=== PATIENT | female | born 1970 | race Caucasian/White ===

== ENCOUNTER 2016-12-01 10:28 | Inpatient (IN) | payer BC, OTHER ==
[~2016-12-01] VITALS: Ht 154.9 cm; Wt 106.4 kg
[~2016-12-01 10:28] MED LIST: GLIP5TAB11 PO; LISI5TAB PO; METF10002 PO
[2016-12-01 10:56] LABS: GLUCOSE,POINT OF CARE 353 MG/DL (70-110)
[2016-12-01] MEDS ORDERED: ASPI81 PO (11:03)
[2016-12-01] MEDS ORDERED: INSLAN SQ (11:03)
[2016-12-01] MEDS ORDERED: LISI-662 PO (11:03)
[2016-12-01 12:15] LABS: BASOPHILS # (AUTO) 0.21 K/uL (0.00-0.20); BASOPHILS % (AUTO) 1.9 % (0.0-2.0); EOSINOPHILS # (AUTO) 0.19 K/uL (0.00-0.70); EOSINOPHILS % (AUTO) 1.77 % (1.0-6.0); HEMATOCRIT 40.9 % (36-46); HEMOGLOBIN 13.4 g/dL (12.0-16.0); LYMPHOCYTES # (AUTO) 3.7 K/uL (1.0-4.8); LYMPHOCYTES % (AUTO) 33.9 % (22.0-44.0); MEAN CORPUSCULAR HEMOGLOBIN 28.7 pg (26.0-34.0); MEAN CORPUSCULAR HGB CONC 32.7 G/dL (31.0-37.0); MEAN CORPUSCULAR VOLUME 88 fL (80-100); MONOCYTES # (AUTO) 0.4 K/uL (0.1-1.0); MONOCYTES % (AUTO) 3.7 % (2.0-9.0); NEUTROPHILS # (AUTO) 6.5 K/uL (1.8-7.7); NEUTROPHILS % (AUTO) 58.7 % (40.0-70.0); PLATELET COUNT (AUTO) 380 K/uL (150-450); RED BLOOD CELL COUNT(AUTO) 4.67 MIL/uL (4.00-5.20); RED CELL DISTRIBUTION WIDTH 14.3 % (11.5-14.5)
[2016-12-01] MEDS ORDERED: FAMOTIDINE 10 MG/ML 2 ML VIAL IVP ONE (12:15)
[2016-12-01] MEDS ORDERED: ONDANSETRON HCL 4 MG/2 ML VIAL IVP ONE (12:15)
[2016-12-01] MEDS ORDERED: HYDROmorphone 2 MG/ML SYRINGE IVP ONE (12:15)
[2016-12-01 12:28] LABS: ANION GAP 8 mmol/L (8-16); CALCIUM, TOTAL 9.6 mg/dL (8.8-10.5); CARBON DIOXIDE 29 mmol/L (22-29); CHLORIDE 98 mmol/L (98-107); CREATININE 0.95 mg/dL (0.60-1.30); GLOMERULAR FILTR. RATE CALC > 60 mL/min (>60); POTASSIUM 4.2 mmol/L (3.5-5.1); SODIUM SERUM 135 mmol/L (136-145); UREA NITROGEN, BLOOD 18 mg/dL (7-18)
[2016-12-01 12:33] LABS: GLUCOSE, URINE (UA) >=1000 mg/dL (NEGATIVE); KETONES,URINE NEGATIVE (NEGATIVE); LEUKOCYTE ESTERASE ,URINE NEGATIVE (NEGATIVE); OCCULT BLOOD,URINE NEGATIVE (NEGATIVE); PH,URINE 7.5 (5.0-8.0); PROTEIN,URINE NEGATIVE (NEGATIVE)
[2016-12-01 12:33] LABS: ALANINE AMINOTRANSFERASE 51 U/L (12-78); ALBUMIN 3.2 g/dL (3.4-5.0); ASPARTATE AMINOTRANSFERASE 27 U/L (15-37); BILIRUBIN,TOTAL 0.2 mg/dL (0.1-1.0); CREATINE KINASE, TOTAL 54 U/L (26-192); TOTAL PROTEIN, SERUM 7.9 g/dL (6.4-8.2)
[2016-12-01 12:34] LABS: PROTHROMBIN TIME 10.2 SEC (9.4-11.6)
[2016-12-01 12:40] LABS: ADD UA MICROSCOPIC YES; APPEARANCE,URINE HAZY (CLEAR)
[2016-12-01 12:40] LABS: B-TYPE NATRIURETIC PEPTIDE 18 pg/mL (0-100)
[2016-12-01 12:42] LABS: RBC,URINE 0-2 /HPF (0-2); WBC,URINE 0-2 /HPF (0-5)
[2016-12-01 12:43] LABS: SQUAMOUS EPITHELIAL CELL,UR Few /LPF (None Seen)
[2016-12-01] MEDS ORDERED: IOVERSOL 350 MG/ML 50 ML VIAL ONE (13:48)
[2016-12-01] MEDS ORDERED: IOVERSOL 350 MG/ML 100 ML VIAL ONE (13:48)
[2016-12-01] MEDS ORDERED: SODIUM CHLORIDE 0.9% 100 ML ONE (13:48)
[2016-12-01] MEDS ORDERED: BARIUM SULFATE 0.1% SUSPENSION 450 ML BOTTLE PO ONE (14:15)
[2016-12-01] MEDS ORDERED: BISACODYL 10 MG RECTAL RECTAL SUPPOSITORY PR PRN (18:00)
[2016-12-01] MEDS ORDERED: MAGNESIUM HYDROXIDE SUSPENSION 30 ML UDCUP PO PRN (18:00)
[2016-12-01] MEDS ORDERED: DEXTROSE 50%-WATER 25 GM/50 ML SYRINGE IVP PRN (18:00)
[2016-12-01] MEDS ORDERED: ACETAMINOPHEN 325 MG TABLET PO PRN (18:00)
[2016-12-01] MEDS ORDERED: ZOLPIDEM TARTRATE 5 MG TABLET PO PRN (18:00)
[2016-12-01 18:16] LABS: GLUCOSE,POINT OF CARE 233 MG/DL (70-110)
[2016-12-01] MEDS: MORPHINE SULFATE 2 MG/ML SYRINGE IVP PRN (19:27)
[2016-12-01] MEDS: INSULIN DETEMIR 100 UNITS/ML SQ SCH (19:59)
[2016-12-01] MEDS: INSULIN ASPART 100 UNITS/ML SQ PRN (20:00)
[2016-12-01 20:02] LABS: GLUCOSE COMMENT 1 Received Meds; GLUCOSE,POINT OF CARE 209 MG/DL (70-110)
[2016-12-01 20:13] VITALS: BP 141/76
[2016-12-01] MEDS: DOCUSATE SODIUM 100 MG CAPSULE PO SCH (21:00)
[2016-12-01] MEDS ORDERED: PNEUMOCOCCAL VACCINE POLYVALENT 0.5 ML VIAL [PPSV23] IM ONE (22:15)
[2016-12-01 23:56] VITALS: BP 110/66
[2016-12-02] MEDS: MORPHINE SULFATE 2 MG/ML SYRINGE IVP PRN (03:38)
[2016-12-02 04:41] VITALS: BP 125/72
[2016-12-02] MEDS: INSULIN ASPART 100 UNITS/ML SQ PRN ×4 (05:34→20:54)
[2016-12-02 06:12] LABS: GLUCOSE COMMENT 1 Received Meds; GLUCOSE,POINT OF CARE 250 MG/DL (70-110)
[2016-12-02 08:12] VITALS: BP 90/53
[2016-12-02] MEDS: ENOXAPARIN SODIUM 40 MG/0.4 ML PF SYRINGE SQ SCH (08:16)
[2016-12-02] MEDS: DOCUSATE SODIUM 100 MG CAPSULE PO SCH ×2 (08:16→20:53)
[2016-12-02] MEDS: PANTOPRAZOLE SODIUM 40 MG DR TABLET PO SCH (08:16)
[2016-12-02] MEDS: OxyCODONE HCL/ACETAMINOPHEN 5-325 MG TABLET PO PRN ×3 (08:37→20:53)
[2016-12-02 10:21] LABS: GLUCOSE COMMENT 1 Received Meds; GLUCOSE,POINT OF CARE 280 MG/DL (70-110)
[2016-12-02 15:45] VITALS: BP 122/67
[2016-12-02 17:16] LABS: GLUCOSE COMMENT 1 Received Meds; GLUCOSE,POINT OF CARE 232 MG/DL (70-110)
[2016-12-02 19:29] VITALS: BP 110/67
[2016-12-02] MEDS: INSULIN DETEMIR 100 UNITS/ML SQ SCH (20:54)
[2016-12-03 00:01] VITALS: BP 91/40
[2016-12-03 01:41] LABS: GLUCOSE,POINT OF CARE 232 MG/DL (70-110)
[2016-12-03 04:59] VITALS: BP 108/59
[2016-12-03] MEDS: MORPHINE SULFATE 2 MG/ML SYRINGE IVP PRN (06:24)
[2016-12-03] MEDS: INSULIN ASPART 100 UNITS/ML SQ PRN ×3 (06:25→20:48)
[2016-12-03 06:31] LABS: GLUCOSE,POINT OF CARE 256 MG/DL (70-110)
[2016-12-03 07:09] VITALS: BP 122/72
[2016-12-03] MEDS: DOCUSATE SODIUM 100 MG CAPSULE PO SCH ×2 (08:17→20:38)
[2016-12-03] MEDS: PANTOPRAZOLE SODIUM 40 MG DR TABLET PO SCH (08:17)
[2016-12-03] MEDS: ENOXAPARIN SODIUM 40 MG/0.4 ML PF SYRINGE SQ SCH (08:17)
[2016-12-03] MEDS: ONDANSETRON HCL 4 MG/2 ML VIAL IVP PRN ×2 (11:12→17:08)
[2016-12-03] MEDS: OxyCODONE HCL/ACETAMINOPHEN 5-325 MG TABLET PO PRN ×2 (11:13→17:12)
[2016-12-03 11:16] LABS: GLUCOSE COMMENT 1 Received Meds; GLUCOSE,POINT OF CARE 200 MG/DL (70-110)
[2016-12-03] MEDS ORDERED: SODIUM CHLORIDE 0.9% 100 ML ONE (11:19)
[2016-12-03] MEDS ORDERED: IOVERSOL 350 MG/ML 50 ML VIAL ONE (11:19)
[2016-12-03] MEDS ORDERED: IOVERSOL 350 MG/ML 100 ML VIAL ONE (11:19)
[2016-12-03 11:35] VITALS: BP 126/74
[2016-12-03 15:21] VITALS: BP 124/73
[2016-12-03] MEDS: MetFORMIN HCL 500 MG ER TABLET PO SCH (16:12)
[2016-12-03 17:25] LABS: GLUCOSE COMMENT 1 Received Meds; GLUCOSE,POINT OF CARE 293 MG/DL (70-110)
[2016-12-03 19:46] VITALS: BP 136/80
[2016-12-03] MEDS: INSULIN DETEMIR 100 UNITS/ML SQ SCH (20:47)
[2016-12-04 00:06] VITALS: BP 128/78
[2016-12-04 02:11] LABS: GLUCOSE COMMENT 1 Received Meds; GLUCOSE,POINT OF CARE 227 MG/DL (70-110)
[2016-12-04 03:25] VITALS: BP 120/69
[2016-12-04] MEDS: INSULIN ASPART 100 UNITS/ML SQ PRN (07:07)
[2016-12-04] MEDS: MetFORMIN HCL 500 MG ER TABLET PO SCH (08:00)
[2016-12-04 08:01] LABS: GLUCOSE COMMENT 1 Received Meds; GLUCOSE,POINT OF CARE 243 MG/DL (70-110)
[2016-12-04 08:02] VITALS: BP 146/87
[2016-12-04] MEDS: PANTOPRAZOLE SODIUM 40 MG DR TABLET PO SCH (08:53)
[2016-12-04] MEDS: DOCUSATE SODIUM 100 MG CAPSULE PO SCH (08:53)
[2016-12-04] MEDS: ENOXAPARIN SODIUM 40 MG/0.4 ML PF SYRINGE SQ SCH (08:54)
[2016-12-04] MEDS: ONDANSETRON HCL 4 MG/2 ML VIAL IVP PRN (08:56)
[2016-12-04] MEDS: MORPHINE SULFATE 2 MG/ML SYRINGE IVP PRN (11:08)
[2016-12-04] MEDS ORDERED: SODIUM CHLORIDE 0.9% 500 ML IV ONE (11:34)
[2016-12-04 11:35] LABS: GLUCOSE,POINT OF CARE 204 MG/DL (70-110)
[2016-12-04 12:15] VITALS: BP 140/67
[2016-12-04] MEDS ORDERED: DEXTROSE 5%-0.45% SODIUM CHL 1,000 ML IV ONE (12:30)
== END 2016-12-04 15:50 | disposition home or self-care (01) | DRG 442 ==
LOC: EMS 10:31 → 6N 17:47
PROVIDERS: ADMIT Internal Medicine; ATTEND Internal Medicine
PROC: 3E0234Z Introduction of Serum, Toxoid and Vaccine into Muscle, Percutaneous Approach (ICD-10-PCS; principal; 2016-12-01)
DX: K76.0 Fatty (change of) liver, not elsewhere classified (principal); E44.0 Moderate protein-calorie malnutrition; K74.60 Unspecified cirrhosis of liver; E66.01 Morbid (severe) obesity due to excess calories; D35.00 Benign neoplasm of unspecified adrenal gland; E11.65 Type 2 diabetes mellitus with hyperglycemia; K57.90 Diverticulosis of intestine, part unspecified, without perforation or abscess without bleeding; N28.1 Cyst of kidney, acquired; Z79.4 Long term (current) use of insulin; Z23 Encounter for immunization; Z79.82 Long term (current) use of aspirin; Z79.84 Long term (current) use of oral hypoglycemic drugs; Z80.0 Family history of malignant neoplasm of digestive organs; Z79.899 Other long term (current) drug therapy; Q27.8 Other specified congenital malformations of peripheral vascular system
CPT/HCPCS: 74177; 74178; 82105; 82378; 82962; 83036; 93005; 96374; 96375; 99285; J1170; J1650; J2270; J2405; J3490; J7040; J7050